=== PATIENT | male | born 1965 | race African-American/Black ===

== ENCOUNTER 2021-04-04 17:25 | Emergency (ER) | payer MEDICARE ==
[~2021-04-04] VITALS: Ht 180.3 cm; Wt 127.0 kg
[2021-04-04 21:55] LABS: BASOPHILS % 0.7 % (0.0-2.0); EOSINOPHILS % 1.7 % (0.0-5.0); HEMATOCRIT. 40.9 % (42.0-52.0); HEMOGLOBIN. 13.7 g/dL (14.0-18.0); LYMPHOCYTES % 46.6 % (20.0-50.0); MEAN CORPUSCULAR HEMOGLOBIN 29.4 pg (28.0-32.0); MEAN CORPUSCULAR VOLUME 87.9 fL (80.0-94.0); MEAN PLATELET VOLUME 7.1 fl (7.4-10.4); MONOCYTES % 8.9 % (2.0-8.0); NEUTROPHILS % 42.1 % (40.0-76.0); PLATELET 339 x1000/uL (130-400); RED BLOOD CELL COUNT 4.65 mill/uL (4.7-6.1)
[2021-04-04 22:01] LABS: CHLORIDE 110 mEq/L (98-107)
[2021-04-05] VITALS: BP 160/94
== END 2021-04-05 00:34 | disposition home or self-care (01) ==
LOC: ER 17:25
DX: N43.3 Hydrocele, unspecified (principal); I10 Essential (primary) hypertension
CPT/HCPCS: 36415; 76870; 80053; 85025; 93976; 99284

== ENCOUNTER 2024-06-22 15:17 | Emergency (ER) | payer MEDICARE ==
[~2024-06-22] VITALS: Ht 182.9 cm; Wt 120.0 kg
[2024-06-22 15:20] VITALS: O2SAT 99
[2024-06-22 15:40] VITALS: BP 208/118; PULSE 110; RESP 18; TEMP 98; O2SAT 100
[2024-06-22 16:06] LABS: BASOPHILS % 0.8 % (0.0-2.0); HEMATOCRIT. 28.4 % (42.0-52.0); HEMOGLOBIN. 9.3 g/dL (14.0-18.0); LYMPHOCYTES % 22.6 % (20.0-50.0); MEAN CORPUSCULAR HEMOGLOBIN 28.4 pg (28.0-32.0); MEAN CORPUSCULAR VOLUME 86.1 fL (80.0-94.0); MEAN PLATELET VOLUME 7.1 fl (7.4-10.4); MONOCYTES % 9.2 % (2.0-8.0); NEUTROPHILS % 67.4 % (40.0-76.0); PLATELET 655 x1000/uL (130-400); RED BLOOD CELL COUNT 3.29 mill/uL (4.7-6.1); RED CELL DISTRIBUTION WIDTH 18.3 % (11.6-14.6); WHITE BLOOD COUNT 8.1 x1000/uL (4.5-11.0)
[2024-06-22 16:18] LABS: CHLORIDE 105 mEq/L (98-107); POTASSIUM 3.1 mEq/L (3.5-5.1); SODIUM 141 mEq/L (136-145)
[2024-06-22 16:19] LABS: CARBON DIOXIDE 25 mEq/L (21-32)
[2024-06-22 16:24] LABS: CREATININE 1.6 mg/dL (0.6-1.3); GLUCOSE 129 mg/dL (70-105); TROPONIN I HIGH SENSITIVITY 14 ng/L (3.0-53); UREA NITROGEN BLOOD 9 mg/dL (9-23)
[2024-06-22 16:26] LABS: ALANINE AMINOTRANSFERASE 24 IU/L (10-49); ALBUMIN 4.6 g/dL (3.2-4.8); ASPARTATE AMINOTRANSFERASE 32 IU/L (<34); BILIRUBIN DIRECT 0.2 mg/dL (<=3.0); BILIRUBIN TOTAL 0.8 mg/dL (0.1-1.0); PROTEIN TOTAL 7.9 g/dL (6.0-8.3)
== END 2024-06-22 16:00 | disposition left against medical advice (07) ==
LOC: ER 15:17
DX: R53.1 Weakness (principal); Z53.21 Procedure and treatment not carried out due to patient leaving prior to being seen by health care provider
CPT/HCPCS: 36415; 80048; 80076; 84484; 85025